=== PATIENT | female | born 1965 | race Caucasian/White ===

== ENCOUNTER 2018-06-12 10:39 | Emergency (ER) | payer MEDICAID ==
[~2018-06-12] VITALS: Ht 157.5 cm; Wt 70.3 kg
[2018-06-12 11:04] VITALS: BP_SYST 155
--- NOTE | 2018-06-12 11:32 | NUR ---
Pt wheeled to bed 6
--- NOTE | 2018-06-12 11:36 | NUR ---
Pt complains of headache and blurry vision since Monday when pt states "had a spinal infusion on Monday and has been leaking since then." Pt states has been going to ER's every day since Monday and needs a "blood patch." Pt states Dr Gallegos told her to come into the ER and would see her today. Denies n/v, CP or SOB. No other injuries/complaints per pt or noted.
--- NOTE | 2018-06-12 11:45 | NUR ---
ER Dr. REECE at bedside examining patient.
[2018-06-12] MEDS ORDERED: ONDANSETRON HCL 4 MG/2 ML VIAL IVP ONE (12:00)
[2018-06-12] MEDS ORDERED: NACL 0.9% 1,000 ML IV ONE (12:00)
[2018-06-12] MEDS ORDERED: fentaNYL CITRATE/PF 100 MCG/2 ML AMP IVP ONE (12:00)
--- NOTE | 2018-06-12 13:00 | NUR ---
NORMAL SALINE IV FLUIDS, SUBLIMAZE FOR HEADACHE, AND ZOFRAN FOR NAUSEA ADMINISTERED PER MD ORDERS. TOLERATED WELL. PLEASE SEE MAR FOR DETAILS.
--- NOTE | 2018-06-12 13:30 | NUR ---
IV FLUIDS CONTINUE TO INFUSE AND TOLERATING WELL. PT RESTING COMFORTABLY ON BED. ASLEEP, BUT EASILY AROUSABLE. PT VERBALIZES RELIEF FROM NAUSEA. PT VERBALIZES GOOD RELIEF FROM HEADACHE = 5/10; TOLERABLE VERBALIZED. NO OBJECTIVE S/SX OF PAIN OBSERVED. SIDE RAILS UP x2. WILL CONTINUE TO MONITOR.
[2018-06-12 14:10] VITALS: BP_SYST 144
--- NOTE | 2018-06-12 14:10 | NUR ---
Patient given written and verbal discharge instructions and verbalizes understanding. ER MD discussed with patient the results and treatment provided. Patient in stable condition. ID arm band removed. IV catheter removed intact and dressing applied, no active bleeding. Rx of NORCO given. Patient educated on pain management and to follow up with PMD. Pain Scale 5/10; TOLERABLE VERBALIZED. NO OBJECTIVE S/SX OF PAIN OBSERVED. Opportunity for questions provided and answered. Medication side effect fact sheet provided. PATIENT IN STABLE CONDITION. NOTED WITH STEADY GAIT.
== END 2018-06-12 14:10 | disposition home or self-care (01) ==
LOC: SED 10:39
DX: G97.1 Other reaction to spinal and lumbar puncture (principal); R03.0 Elevated blood-pressure reading, without diagnosis of hypertension
CPT/HCPCS: 96374; 96375; 99283; J2405; J3010; J7030

== ENCOUNTER 2021-04-29 16:15 | Emergency (ER) | payer MEDICAID, SELFPAY ==
[~2021-04-29] VITALS: Ht 157.5 cm; Wt 68.0 kg
[2021-04-29 16:15] VITALS: BP_SYST 131
--- NOTE | 2021-04-29 16:15 | NUR ---
BROUGHT BACK TO TENT AND TRIAGED. WILL ASSUME CARE
--- NOTE | 2021-04-29 16:40 | NUR ---
Patient swabbed for covid and influezna. Sample brought to lab at 1644.
[2021-04-29] MEDS ORDERED: KETOROLAC TROMETHAMINE 30 MG VIAL IM ONE (17:00)
--- NOTE | 2021-04-29 17:00 | NUR ---
PT STATES COUGH WITH BODY ACHES, HEADACHES, RUNNY NOSE. STATES LEFT HAND RASH WITH ITCHING SINCE STARTING NEW MEDICATION FOR MS. PT STATES SHE IS NOT VACCINATED AND DOES NOT WANT IT. STATES SHE HAS BEEN TESTED OFTEN FOR COVID BUT HAS NEVER BEEN POSITIVE.
--- NOTE | 2021-04-29 17:14 | NUR ---
IM Toradol given per md order.
--- NOTE | 2021-04-29 17:40 | NUR ---
DR NEWMAN AT BEDSIDE FOR EVALUATION
--- NOTE | 2021-04-29 17:50 | NUR ---
Patient given written and verbal discharge instructions and verbalizes understanding. ER MD discussed with patient the results and treatment provided. Patient in stable condition. ID arm band removed. Rx of NONE given. Patient educated on pain management and to follow up with PMD. Pain Scale 0/10. Opportunity for questions provided and answered. Medication side effect fact sheet provided.
== END 2021-04-29 17:50 | disposition home or self-care (01) ==
LOC: SED 16:15
DX: B34.9 Viral infection, unspecified (principal); I10 Essential (primary) hypertension; Z79.899 Other long term (current) drug therapy; Z20.822 Contact with and (suspected) exposure to COVID-19
CPT/HCPCS: 86710; 87426; 99283; J1885; 36415